=== PATIENT | female | born 1980 | race American Indian/Alaskan Native ===

== ENCOUNTER 2018-01-15 07:30 | Inpatient (IN) | payer OTHER ==
--- NOTE | 2018-01-13 10:37 | History and Physical Report ---
History of Present Illness Date of examination: 01/08/18 Date of admission: 01/15/18 Chief complaint: here for c/s History of present illness: pt presents for repeat c/s times 4. She does not desire a tubal ligation at this time. Pt does understand risk of several abdominal surgeries including injury to bladder, bowel, uterus, tubes, ovaries, the baby, loss of blood requiring transfusion. I spent several minutes discussing these risk in detail with pt and her . Numerous questions were addressed and answered. EDC Confirmation: 01/22/2018 Gestational Age: 6 3/7 weeks Past History : 5 Term Births: 3 Premature Births: 0 Living Children: 3 Para: 3 Mult. Births: 0 Prev : 3 Prev. attempt? 0 Aborta: 1 Elect. Ab: 1 Spont. Ab: 0 Ectopics: 0 # 1 Delivery date: 08/14/2000 Weeks Gestation: .40 labor: no Delivery type: Anesthesia type: epidural Delivery location: [facility] Sex: Female weight: 7-12 Comments: cs for CPD # 2 Delivery date: 05/26/2003 Delivery type: EAB Comments: , date unknown, no complications # 3 Delivery date: 07/06/2008 Weeks Gestation: 39 labor: no Delivery type: Anesthesia type: epidural Delivery location: [facility] Infant Sex: Female weight: 7-6 Comments: sched rpt # 4 Delivery date: 12/10/2009 Weeks Gestation: 39 Delivery type: Anesthesia type: spinal Delivery location: [facility] Sex: Female weight: 7-10 Past Medical History: Reviewed history from 01/09/2010 and no changes required: Negative Past Medical History no hx of dvt while taking ocp Past Surgical History: Reviewed history from 07/20/2015 and no changes required: x3 Transabdominal Myomectomy (07/20/2015) Past Medical History Abnormal PAP: negative MARIAELENA Exposure: negative Infertility: negative Uterine Anomaly: negative Uterine Surgery (not C/S): negative Other Gynecologic Problems: negative Social Hx: no etoh, no illicit drug use, no tobacco use Patient is Active Medications (reviewed today): DIFLUCAN 150 MG TABS (FLUCONAZOLE) 1 po now MULTI VITAMINS () Current Allergies (reviewed today): PCN (Critical) Past History Past Medical History: no pertinent history Past Surgical History: section [employer] History: denies: abnormal PAP smear, chlamydia, gonorrhea Family/Genetic History: none Social history: no significant social history, - Obstetrical History Expected Date of Delivery: 01/22/18 Actual Gestation: 38 Week(s) 5 Day(s) : 5 Para: 3 Induced : 1 Number of Living Children: 3 Medications and Allergies Allergies Allergy/AdvReac Type Severity Reaction Status Date / Time Penicillins Allergy Hives Verified 07/11/15 12:22 Home Medications Medication Instructions Recorded Confirmed Last Taken Type Ferrous Sulfate [Feosol 325 MG tab] 325 mg PO BID #60 tablet 07/20/15 Unknown Rx Ibuprofen [Motrin 800 MG tab] 800 mg PO Q6H PRN #30 tablet 07/20/15 Unknown Rx Mv-Min/Folic/Vit K/Lycop/Coq10 1 tab PO DAILY 07/20/15 07/20/15 07/19/15 20:00 History [Daily Multivitamin Capsule] oxyCODONE /ACETAMINOPHEN [Percocet 1 - 2 tab PO Q4H PRN #30 tablet 07/20/15 Unknown Rx 5/325 mg] - Physical Exam Cardiovascular: Normal S1, Normal S2 Lungs: Positive: Clear to auscultation, Normal air movement Abdomen: Positive: normal appearance, soft. Negative: distention, tenderness, guarding Genitourinary (Female): Positive: other (deferred) Extremities: Positive: normal. Negative: tenderness, edema - Obstetrical FHR: auscultation normal Results All other labs normal. Assessment and Plan - Patient Problems (1) Previous section complicating , antepartum condition or complication Status: Acute Plan to address problem: -admit for c/s -all risk, benefits and alternatives were d/w pt and questions were addressed and answered. (2) AMA (advanced maternal age) multigravida 35+ Status: Acute
[2018-01-15] MEDS ORDERED: CLEOCIN 600 MG/50 mL 600 MG/50 ML BAG IV NR (09:30)
[2018-01-15] MEDS ORDERED: BICITRA PO NR (09:30)
[2018-01-15] MEDS ORDERED: PEPCID IV NR (09:30)
[2018-01-15] MEDS ORDERED: REGLAN IV NR (09:30)
[2018-01-15 10:10] LABS: Basophils % (Auto) 0.7 % (0.0-1.8); Eosinophils # (Auto) 0.1 K/mm3 (0.0-0.4); Eosinophils % (Auto) 1.7 % (0.0-4.3); Hematocrit 31.7 % (30.3-42.9); Hemoglobin 10.4 gm/dl (10.1-14.3); Lymphocytes # (Auto) 1.9 K/mm3 (1.2-5.4); Lymphocytes % (Auto) 26.3 % (13.4-35.0); Mean Corpuscular HGB Conc 33 % (30-34); Mean Corpuscular Hemoglobin 31 pg (28-32); Mean Corpuscular Volume 96 fl (79-97); Monocytes # (Auto) 0.5 K/mm3 (0.0-0.8); Monocytes % (Auto) 6.9 % (0.0-7.3); Platelet Count 235 K/mm3 (140-440); Red Blood Count 3.31 M/mm3 (3.65-5.03); Red Cell Distribution Width 14.6 % (13.2-15.2)
[2018-01-15] MEDS: NORMOSOL-R PH 7.4 1,000 ML IV SCH ×2 (10:52→10:54)
[2018-01-15] MEDS ORDERED: GARAMYCIN/NS 80 MG/100 ML 100 ML IV ONE (11:23)
[2018-01-15] MEDS ORDERED: ASTRAMORPH PF 10MG/10ML ONE (11:27)
[2018-01-15] MEDS ORDERED: GARAMYCIN 100 MG in NACL 0.9% 100 ML IV NR (11:30)
[2018-01-15] MEDS ORDERED: NACL 0.9% IR ONE (11:40)
[2018-01-15] MEDS ORDERED: WATER FOR IRRIG STERILE IR ONE (11:40)
[2018-01-15] MEDS ORDERED: TORADOL IV PRN (13:46)
[2018-01-15] MEDS ORDERED: MYLICON PO PRN (13:48)
[2018-01-15] MEDS ORDERED: NARCAN 0.4 MG/1 ML IV PRN (13:48)
[2018-01-15] MEDS ORDERED: TUCKS PAD TP PRN (13:48)
[2018-01-15] MEDS ORDERED: ZOFRAN IV PRN ×2 (13:48→14:19)
[2018-01-15] MEDS ORDERED: LANSINOH TP PRN (13:48)
[2018-01-15] MEDS: PITOCin/NS 20 UNIT/1000ML DRIP 20 UNITS/1,000 ML BAG IV SCH ×2 (13:53→13:58)
[2018-01-15] MEDS ORDERED: SODIUM CHLORIDE FLUSH SYRINGE 10 ML IV SCH (14:00)
--- NOTE | 2018-01-15 14:18 | Anesthesia Day of Surgery ---
Anesthesia Day of Surgery - Day of Surgery Patient Examined: Yes Patient H&P Reviewed: Yes Patient is NPO: Yes
[2018-01-15] MEDS ORDERED: DILAUDID IV PRN (14:19)
--- NOTE | 2018-01-15 14:19 | Anesthesia Consultation ---
Anesthesia Consult and Med Hx Date of service: 01/15/18 - Airway Anesthetic Teeth Evaluation: Good ROM Head & Neck: Adequate Mallampati Class: Class III Intubation Access Assessment: Possibly Difficult - Pulmonary Exam CTA: Yes - Cardiac Exam Cardiac Exam: RRR - Pre-Operative Health Status ASA Pre-Surgery Classification: ASA2 Proposed Anesthetic Plan: Epidural, Spinal - Pulmonary Hx Smoking: No Hx Asthma: No COPD: No Hx Pneumonia: No - Cardiovascular System Hx Hypertension: No - Central Nervous System Hx Seizures: No Hx Psychiatric Problems: No - Endocrine Hx Renal Disease: No Hx End Stage Renal Disease: No Hx Non-Insulin Dependent Diabetes: No Hx Hypothyroidism: No Hx Hyperthyroidism: No - Hematic Hx Anemia: No Hx Sickle Cell Disease: No - Other Systems Hx Alcohol Use: No Hx Cancer: No - Additional Comments Anesthesia Medical History Comments: 3 previous C/Sections
[2018-01-15] MEDS ORDERED: CLEOCIN 600 MG/50 mL 600 MG/50 ML BAG IV SCH (18:00)
--- NOTE | 2018-01-15 20:06 | Operative Report ---
Operative Report Operative Report: Date of procedure: 01/15/2018 Pre-operative diagnosis: 39 weeks gestation Advanced maternal age Previous section 3 Post-operative diagnosis: Same plus footling breech presentation Procedure name(s): Repeat low transverse section via Pfannenstiel skin incision Surgeon: Dr. Peck [employer] Horses: AMARI Anesthesia: Combined spinal epidural EBL: 700ml Urine output: 400ml Fluids: 1400ml Findings: Live born male infant breech presentation weight 8lbs 5oz apgars of 8 and 9 at 1 and 5 minutes. Grossly normal tubes and ovaries b/l. Indications: presents for repeat section. All risk, benefits and alternatives were d/w pt and all questions were addressed and answered. Consents signed and placed on the chart. Procedure: Patient was taking to the operating room. Patient was then prepped and draped in sterile fashion after anesthesia was found to be adequate. A low transverse skin incision was made with the scalpel through previous incisional scar and carried down to the underlying layer of fascia with the Bovie. The fascia was then incised in the midline and this incision was extended bilaterally with the Bovie. The superior aspect of the fascia was grasped with Kyrie clamps tented upward and dissected off of the anterior rectus muscles with the scalpel. In similar fashion the inferior aspect of the fascia was grasped with Kyrie clamps tented upward and dissected off of the anterior rectus muscles. The rectus muscles were then bluntly divided in the midline. The peritoneum was identified and entered into sharply. The bladder blade was placed. The Silvio retractor was placed. A lower transverse uterine incision was made with the scalpel and extended bilaterally with blunt dissection. Artificial rupture of membranes was performed yielding clear amniotic fluid. The infant was noted to be in footling breech presentation. The was delivered via breech extraction in usual fashion without difficulty. The umbilical cord was clamped x2. The cord was cut. The was then placed in sterile bassinet. The cord blood was collected. The placenta was manually extracted in its entirety. The uterus was exteriorized and cleared of all clots and debris. The uterine incision was closed using 0 Vicryl in a running locking fashion. A second imbricating layer of the same suture was then created. The posterior cul-de-sac was copiously irrigated. The uterus was returned to the abdomen. The gutters were also irrigated. The Silvio retractor was removed. The anterior rectus muscles were reapproximated using 3-0 Vicryl. The anterior rectus fascia was reapproximated using 0 Vicryl in a running fashion. The subcuticular fat was reapproximated using 2-0 Vicryl in a running fashion. The skin was reapproximated with 4-0 Monocryl in a subcuticular stitch. The patient tolerated the procedure well. Sponge lap and needle counts were all correct x3. Patient was taken to the recovery room awake and in stable condition.
[2018-01-15] MEDS: CLEOCIN 600 MG/50 mL 600 MG/50 ML BAG IV SCH (23:09)
[2018-01-16 00:53] LABS: Hematocrit 30.3 % (30.3-42.9); Hemoglobin 9.8 gm/dl (10.1-14.3)
[2018-01-16] MEDS ORDERED: NUBAIN IV ONE (02:36)
[2018-01-16] MEDS ORDERED: BOOSTRIX IM ONE (06:00)
[2018-01-16] MEDS ORDERED: BENADRYL PO NR (10:00)
[2018-01-16] MEDS ORDERED: BENADRYL PO PRN (10:00)
[2018-01-16] MEDS: CLEOCIN 600 MG/50 mL 600 MG/50 ML BAG IV SCH (10:24)
[2018-01-16] MEDS: MOTRIN PO PRN ×2 (10:39→21:56)
--- NOTE | 2018-01-16 13:10 | Progress Note ---
Assessment and Plan - Patient Problems (1) delivery delivered Current Visit: Yes Status: Acute Plan to address problem: continue c/s pathway (2) AMA (advanced maternal age) multigravida 35+ Current Visit: No Status: Acute (3) Previous section complicating , antepartum condition or complication Current Visit: No Status: Acute Subjective - Subjective Date of service: 01/16/18 Principal diagnosis: POD#1, LTCS Interval history: sitting on the side of bed, no complaints, minimal bleeding Patient reports: appetite normal, pain well controlled, ambulating normally Objective - Vital Signs Latest vital signs: Vital Signs Temp Pulse Resp BP BP Pulse Ox 01/16/18 08:09 98.2 F 82 18 125/69 97 01/16/18 05:05 98.3 F 76 18 123/59 01/16/18 01:25 97.8 F 75 18 123/67 01/15/18 20:19 97.4 F L 78 18 110/57 01/15/18 14:06 98.7 F 01/15/18 14:05 77 16 122/68 99 01/15/18 14:00 76 12 111/60 98 01/15/18 13:55 78 15 109/67 98 01/15/18 13:50 80 17 118/69 98 01/15/18 13:45 83 18 124/68 99 01/15/18 13:40 83 16 124/68 96 01/15/18 13:35 90 17 121/64 98 01/15/18 13:31 76 18 132/62 98 01/15/18 13:25 80 16 132/62 99 01/15/18 13:20 71 19 141/66 99 01/15/18 13:15 80 20 131/63 99 01/15/18 13:11 17 133/55 97 Intake and Output 01/15/18 01/16/18 01/16/18 22:59 06:59 14:59 Intake Total 240 650 Output Total 500 1800 Balance -260 -1150 Intake: IV 50 CLEOCIN 600 MG/50 mL 600 50 mg In 50 ml @ 100 mls/hr IV Q8H [facility] Rx#:[id number] Intake, Free Water 240 600 Output: Urine 500 1800 Indwelling Catheter 500 1400 Void 400 Other: Total, Output Amount 500 400 - Exam Breasts: Present: normal. Absent: swelling, engorged Cardiovascular: Present: Regular rate Lungs: Present: Clear to auscultation, Normal air movement Abdomen: Present: soft, distention, normal bowel sounds Uterus: Present: firm, fundal height below umbilicus Extremities: Present: normal, edema (trace) Incision: Present: dressed - Labs Labs: Abnormal lab results 01/16/18 Range/Units 00:42 Hgb 9.8 L (10.1-14.3) gm/dl
[2018-01-17] MEDS: NORCO 5/325 PO PRN (01:54)
--- NOTE | 2018-01-17 09:43 | Progress Note ---
Assessment and Plan - Patient Problems (1) delivery delivered Current Visit: Yes Status: Acute Plan to address problem: continue c/s pathway ? D/c home tomorrow (2) AMA (advanced maternal age) multigravida 35+ Current Visit: No Status: Acute (3) Previous section complicating , antepartum condition or complication Current Visit: No Status: Acute Subjective - Subjective Date of service: 01/17/18 Principal diagnosis: POD#2, LTCS Interval history: sitting on the side of bed, no complaints, minimal bleeding Patient reports: appetite normal, voiding normally, pain well controlled, flatus , ambulating normally Objective - Vital Signs Latest vital signs: Vital Signs Temp Pulse Resp BP 01/17/18 08:15 98.3 F 76 18 110/69 01/17/18 00:15 98.2 F 83 18 120/71 Intake and Output 01/16/18 01/17/18 01/17/18 22:59 06:59 14:59 Intake Total 360 240 120 Balance 360 240 120 Intake: Oral 120 Intake, Free Water 360 240 Other: Total, Intake Amount 120 # Voids Void 2 1 1 - Exam Breasts: Present: normal. Absent: swelling, engorged Cardiovascular: Present: Regular rate Lungs: Present: Clear to auscultation, Normal air movement Abdomen: Present: normal appearance, distention, normal bowel sounds Uterus: Present: fundal height below umbilicus. Absent: tenderness Extremities: Present: normal. Absent: tenderness, edema Incision: Present: normal, dry, intact
[2018-01-17] MEDS: MOTRIN PO PRN ×2 (13:03→18:36)
[2018-01-18] MEDS: NORCO 5/325 PO PRN (00:10)
[2018-01-18] MEDS: MOTRIN PO PRN ×2 (05:31→11:36)
--- NOTE | 2018-01-18 07:44 | Discharge Summary ---
Providers - Providers Date of Admission: 01/15/18 09:09 Date of discharge: 01/18/18 (pt agrees to d/c) Attending physician: CLIF HERNANDEZ Primary care physician: COSME VO Hospitalization Reason for admission: section Delivery: Procedure: repeat low transverse Episiotomy: none Laceration: none Incision: normal, dry, intact Other procedures: none complications: none Discharge diagnosis: IUP at term delivered baby: male Hospital course: uncomplicated repeat section Pt w/o complaint VSS FF below umb Lochia scant Incision D&I H&H stable No s/sx of anemia. Doing well s/p c/s P: d/c home today with instructions RTO 1 week postop and circ. to see pt today to help with feeding and using the pump. Condition at discharge: Good Disposition: DC-01 TO HOME OR SELFCARE - Discharge Diagnoses (1) delivery delivered Status: Acute Comment: RTO 1 week postop care Plan - Discharge Medications Prescriptions: Ibuprofen 800 mg PO Q6HR #30 tablet Lidocain2.5%/Prilocai2.5% [Emla] 2 gm TP ONCE #1 tube oxyCODONE /ACETAMINOPHEN [Percocet 5/325] 1 tab PO Q4HR #30 tab - Provider Discharge Summary Activity: routine, no sex for 6 weeks, no heavy lifting 4 weeks, no strenuous exercise Diet: routine Instructions: routine Additional instructions: [] Smoking cessation referral if applicable(refer to patient education folder for contact #) [] Refer to [facility]'s [facility] Booklet Call your doctor immediately for: * Fever > 100.5 * Heavy vaginal bleeding ( >1 pad per hour) * Severe persistent headache * Shortness of breath * Reddened, hot, painful area to leg or breast * Drainage or odor from incision. * Keep incision clean and dry at all times and follow doctor's instructions regarding bathing/showering - Follow up plan Follow up: COSME VO MD [Primary Care Provider] - 7 Days (Congratulations! Please call [phone] to schedule your postoperative visit and your son's circumcision in 1 week. Bring the EMLA cream with you to his visit. Do NOT use at home. Take medications as prescribed. Call with concerns.) Forms: [facility] Discharge Summary
[2018-01-18 09:56] VITALS: BP 130/67
== END 2018-01-18 15:40 | disposition home or self-care (01) | DRG 766 ==
LOC: APU 09:09 → OB 14:45
PROVIDERS: ADMIT Obstetrics & Gynecology; ATTEND Obstetrics & Gynecology
PROC: 10D00Z1 Extraction of Products of Conception, Low, Open Approach (ICD-10-PCS; principal; 2018-01-15)
DX: O34.211 Maternal care for low transverse scar from previous cesarean delivery (principal); Z3A.39 39 weeks gestation of pregnancy; Z37.0 Single live birth; Z88.0 Allergy status to penicillin; O32.8XX0 Maternal care for other malpresentation of fetus, not applicable or unspecified
CPT/HCPCS: 36415; 85014; 85018; 85025; 86850; 86900; 86901; C9250; J1580; J1885; J2274; J2300; J2405; J2590; J2765

== ENCOUNTER 2020-10-30 14:56 | Outpatient (CLI) | payer BC ==
--- NOTE | 2020-10-30 15:53 | Ultrasound Report ---
ULTRASOUND BREAST LEFT LIMITED, 10/30/2020 CLINICAL INFORMATION / INDICATION: Breast pain in the upper outer quadrant and subareolar region for approximately 2 years.. TECHNIQUE: Targeted ultrasound evaluation was performed of the area of interest. COMPARISON: None. FINDINGS: The breasts are predominantly fatty. I see no evidence of a mass, posterior shadowing or distortion. No ductal ectasia or adenopathy are seen. IMPRESSION: No sonographic evidence of malignancy. Follow up recommendation: Routine yearly BI-RADS Category 1: Negative. A normal or "negative" report should not preclude biopsy or follow-up of a clinically suspicious find ing. Signer Name: Mike Powell MD Signed: 10/30/2020 3:49 PM Workstation Name: [id number]
== END 2020-10-30 14:57 | disposition home or self-care (01) ==
LOC: SPVWC 14:56
PROVIDERS: ATTEND Obstetrics & Gynecology
DX: N64.4 Mastodynia (principal); R92.8 Other abnormal and inconclusive findings on diagnostic imaging of breast
CPT/HCPCS: 77066

== ENCOUNTER 2022-04-08 13:41 | Outpatient (CLI) | payer OTHER ==
--- NOTE | 2022-04-10 13:20 | Mammography Report ---
DIGITAL SCREENING MAMMOGRAM WITH TOMOSYNTHESIS WITH CAD, 04/08/2022 CLINICAL INFORMATION / INDICATION: Routine Screening Mammography. TECHNIQUE: Digital bilateral 2D and 3D mammography with tomosynthesis was obtained in the craniocaud al and mediolateral oblique projections. Computer-Aided Detection (CAD) analysis was used for interp retation of this study. COMPARISON: 10/30/2020 FINDINGS: Breast Density: There are scattered areas of fibroglandular density. No dominant mass, suspicious calcifications, or architectural distortion in either breast. Intramammary lymph node is again noted in the right breast. There has been no significant interval ch sonia. IMPRESSION: No mammographic evidence of malignancy. Follow up recommendation: Routine yearly screening mammogram. BI-RADS Category 2: BENIGN. A "normal" or negative report should not discourage follow up or biopsy of a clinically significant f inding. A written summary of these findings will be mailed to the patient. The patient will be entered into a mammography reporting system which will generate a reminder letter for the patient's next appointmen t at the appropriate interval. The [employer] recommends yearly mammograms starting at age 40 and continuing as l mary as a woman is in good health. Breast MRI is recommended for women with an approximate 20-25% or greater lifetime risk of breast cancer, including women with a strong family history of breast or ova alex cancer or who have been treated for Hodgkin's disease. Signer Name: Elissa Wick MD Signed: 04/10/2022 1:16 PM Workstation Name: [id number]
== END 2022-04-08 13:42 | disposition home or self-care (01) ==
LOC: SPVWC 13:41
PROVIDERS: ATTEND Obstetrics & Gynecology
DX: Z12.31 Encounter for screening mammogram for malignant neoplasm of breast (principal)
CPT/HCPCS: 77063; 77067

== ENCOUNTER 2022-06-25 02:41 | Emergency (ER) | payer SELFPAY | END 2022-06-25 03:13 | disposition left against medical advice (07) | LOC: ED 02:41 | DX: R51.9 Headache, unspecified (principal); Z53.21 Procedure and treatment not carried out due to patient leaving prior to being seen by health care provider ==